=== PATIENT | male | born 1985 | race Caucasian/White ===

== ENCOUNTER 2017-05-04 11:34 | Emergency (ER) | payer OTHER ==
[~2017-05-04] VITALS: Ht 177.8 cm; Wt 65.0 kg
[~2017-05-04 11:34] MED LIST: IBUP-232 PO
[2017-05-04] MEDS ORDERED: LIDOCAINE 1%/EPINEPHrine 1:100,000 SOLN 20 ML VIAL INFIL ONE (11:45)
[2017-05-04 11:49] VITALS: BP 146/86; PULSE 89; RESP 18; TEMP 98.3; O2SAT 100
[2017-05-04] MEDS ORDERED: LIDOCAINE 2%/EPINEPHrine 1:100,000 50ML MDV ONE (11:57)
[2017-05-04] MEDS ORDERED: LIDOCAINE 1%/EPINEPHrine 1:100,000 SOLN 50 ML VIAL ONE (11:57)
[2017-05-04] MEDS ORDERED: ACETAMINOPHEN 500 MG CPLT PO ONE (12:00)
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
--- NOTE | 2017-05-04 12:21 | PD ---
Physical Exam Date Seen by Provider: May 04, 2017 Time Seen by Provider: 12:19 Narrative I was asked by Dr. Higuera to suture the forehead laceration on this patient. Data Data Last Documented VS Vital Signs Date Time Temp Pulse Resp B/P (MAP) Pulse Ox O2 Delivery O2 Flow Rate FiO2 05/04/17 11:49 91 18 100 Room Air 05/04/17 11:49 98.3 146/86 (106) Orders Orders Ct Brain W/O Iv Contrast(Rout) (05/04/17 ) Ct Cerv Spine W/O Contrast (05/04/17 ) Lidocai-Epi 1%-1:100,000 Inj (Xylocaine- (05/04/17 11:45) Acetaminophen (Tylenol) (05/04/17 12:00) Lidocai-Epi 1%-1:100,000 Inj (Xylocaine- (05/04/17 11:57) Lidocai-Epi 2%-1:100,000 Inj (Xylocaine- (05/04/17 11:57) MDM Medical Record Reviewed: Yes Supervised Visit with TARA: Yes Procedures Procedure Narrative LACERATION LOCATION: Right upper lateral forehead LENGTH: 5 cm NUMBER OF STITCHES/GIORGI: 1 interrupted vertical mattress, one running stitch , 4 interrupted horizontal mattress REPAIR: The area of the laceration was prepped with Betadine and sterilely draped. The laceration was infiltrated with 5 mL 2% lidocaine with epi. The wound was copiously irrigated and explored without evidence of foreign body, tendon injury or neurovascular injury. The wound was closed using 5-0 Prolene. This was a single layer repair. The patient was advised to keep the wound area clean and dry. Patient tolerated the procedure well. Diagnosis Primary Impression: Forehead laceration Additional Impression: Closed head injury Additional Instruction: Keep wound clean and dry. Do not wet for 24 hours. After 24 hours and clean the wound gently with soap and water. Gently clean wound twice daily with soap and water. Do not soak wound. No swimming, hot tubs, or allowing wound to get too wet. Apply antibiotic ointment to wound twice daily. Return to the emergency department for any worsening pain, swelling, redness, significant bleeding, or any other new or worsening symptoms. Return the emergency department in 7 days for suture removal. Disposition: DISCHARGE HOME Condition: Stable Isra Clay May 04, 2017 12:21
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
== END 2017-05-04 14:18 | disposition home or self-care (01) ==
LOC: NEPC 11:34
DX: S01.81XA Laceration without foreign body of other part of head, initial encounter (principal); M54.2 Cervicalgia; W22.8XXA Striking against or struck by other objects, initial encounter; Z59.0 Homelessness
CPT/HCPCS: 12013; 70450; 72125